=== PATIENT | female | born 1935 | race Caucasian/White ===

== ENCOUNTER 2025-05-03 12:48 | Outpatient (AMB) | payer MEDICARE, SELFPAY ==
--- NOTE | 2025-05-03 12:57 | A.SPINEOV_ITS ---
Vital Signs 05/03/25 13:03 Height 5 ft 6 in Weight 162 lb BMI 26.1 Intake Visit Reasons: LBP Intake Note: Ms. Hartmann is here today c/o Low back pain that radiates to legs causing weakness. Marine Architect Required: No Allergies No Known Allergies Allergy (Verified 05/03/25 13:03) Physical Exam Vital Signs: BMI result Body Mass Index 26.1 Assessment & Plan Assessment & Plan (1) Spinal stenosis, lumbar region with neurogenic claudication: Code(s): M48.062 - Spinal stenosis, lumbar region with neurogenic claudication Category: Medical Plan Dear JANNETH Santiago, Thank you for referring Hortencia to our office today. She is a pleasant 89 year old female who comes in today for evaluation of low back pain and bilateral leg pain primarily with ambulation. She reports that this has been going on for many years, and states that she has had previous history of 3 separate spine surgeries. She reports that she had an L4-5 fusion, a laminotomy with synovial cyst resection, and a discectomy completed by Dr. Ivey about 10 years ago. He has since retired so she wished to establish care with our office. She reports that she did have good relief of her low back pain and leg pain after a previous 3 surgeries, however always had some baseline low back pain despite surgical attempts to relieve her pain. Today, she states that for the last 2 years her low back pain and anterior thigh pain has significantly worsened. It is now to the point where she is only able to walk about 1 block before the cr amping/shooting pain into her anterior thighs prevents her from walking any farther. She needs to sit down and rest in order to continue walking. She also reports some limitations to her activities of daily living, including difficulties with basic activity such as grocery shopping, where she needs to utilize a shopping cart in order to get around the store. Given these limitations she has tried to remain quite functional, she states that she goes to the [facility] once a week for exercise class, and also goes bowling weekly. She has attempted [id number] and prescription medications in an effort to treat this via Tylenol/NSAIDs/gabapentin, however she reports these have not been particularly helpful. She has had cortisone injections with some transient relief of low back pain with our colleagues at [facility]. She has just completed a course of physical therapy. She does report some issues with bladder incontinence about 2 years ago, but states she has more recently had issues with bladder retention and states its hard for her to start a urine stream. She denies saddle anesthesia. PMH: Hypertension, arthritis, anxiety, cholecystectomy, breast cancer removal (4 years ago, in remission). Denies any Hx of cardiac / pulmonary issues aside from HTN. No Hx [place]/DVT/PE or clotting / bleeding disorders. Social hx: Patient does not smoke, reports no substance use. Medications: Gabapentin, occulite (OTC), hydrochlorothiazide, Isorbide, simvastatin, pantoprazole, escitalopram, anastrozole. Allergies: NKDA Physical exam: Pleasant elderly woman with normal body habitus. On exam the patient has about 4/5 strength in bilateral iliopsoas testing. The rest of her lower extremity strength is 5/5. She ambulates well and rises from a seated position without difficulty. She uses no assistive devices to ambulate. She has no significant sensational deficits reported on examination to light touch. (-) bilateral straight leg raise, (-) Elise's, (-) clonus. Imaging review: MRI of the lumbar spine completed here at [facility] shows evidence of prior L4-5 lumbar fusion. 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 There is moderate central canal stenosis at L3-4. Impression: Hortencia is a pleasant 82-year-old female comes in today for evaluation of low back pain and cramping pains in her bilateral thighs which occurs primarily with ambulation. Her clinical picture is most consistent with spinal stenosis with neurogenic claudication. I believe this is most likely happening as a result of the severe compression seen at L2-3. We discussed the continuum of care options for this issue, including minimally invasive lumbar decompression at L2-3 with synovial cyst removal. The patient reports that her symptoms are affecting her quality of life significantly, and she had like to proceed with surgery if possible. We extensively discussed what this surgery would entail. I answered all questions that she had. I informed her that I will need to discuss the case with my attending neurosurgeon Dr. Thacker, and will call her next week with a surgical decision. This is an outpatient day surgery, and I feel would be a good option for this patient context of her symptoms. She understands that this would likely not treat her baseline low back pain, but would primarily be intended to treat her leg cramping / neurogenic claudication. Thank you for allowing us to care for your patient. The total time spent with this visit with this patient was 45 minutes reviewing history, physical exam, MRI imaging review, and implementation of treatment plan or further diagnostic testing William Thacker MD,PhD [facility] Coding Level of Care Code New Pt Level 4 (81669) Diagnoses Spinal stenosis, lumbar region with neurogenic claudication M48.062
[2025-05-03 13:03] VITALS: BMI 26.1
--- OUTSIDE RECORDS SUMMARY | 2025-05-03 15:16 | XMS_ITS | Encounter Summary ---
Author Organization [facility] Address [address] [place] [address] [place] [phone] Phone Care Team Providers Care Fuel Cell Designer Name Role Phone Keysha Yanez ERCO MACHINE OPERATOR Primary Care Provider Encounter Details Date Type Department Care Team (Latest Contact Info) Description 10/28/2024 Transcribe Orders Virtual Department [address] [place] [address] Keysha Yanez NP 1 [facility] [address]nd [place] [address] [email or web address] Age-related osteoporosis without current pathological fracture (Primary Dx) Social History Tobacco Use Types Packs/Day Years Used Date Smoking Tobacco: Never Smokeless Tobacco: Never Alcohol Use Standard Drinks/Week Comments Yes 1 (1 standard drink = 0.6 oz pur e alcohol) Education Answer Date Recorded Are you interested in more education? Not on mai e 12/04/2022 Are you concerned about learning? Not on file 12/04/2022 No 12/04/2022 No 12/04/2022 Digital Access Answer Date Recorded No 01/05/2023 No 01/05/2023 Reliable internet access at home? Not on file 01/05/2023 Device with a working camera? Not on file Comments Unknown Sex and Gender Information Value Date Recorded Sex Assigned at Not on file Legal Sex Female 10:14 PM EDT Gender Identity Not on file Sexual Orientation Not on file documented as of this encounter Plan of Treatment Upcoming Encounters Date Type Department Care Team (Late st Contact Info) Description 06/15/2025 2:20 PM EST Office Visit [facility] [address] [place] [address] Ubaldo Peraza DO [address] [place] [address] [email or web address] documented as of this encounter Results * BD DXA AXIAL (SPINE) WITH HIP (03/20/2025 10:24 AM EDT) Anatomical Region Laterality Modality Bone Density Bone Density 03/20/2025 10:2 2 AM EDT Impressions 03/20/2025 7:00 PM EDT Interpretation: Osteopenia. Narrative 03/20/2025 7:00 PM EDT Referred By: KEYSHA YANEZ Indications: Osteoporosis Scanner: Pinshape A with serial# of [id number] located at [facility] Bone Density Scan (DXA) 03/20/25 Details of prior DXA scans are available by clicking View Full Report BMD T- Z- Skeletal Site gm/cm2 score score BMD Change Since Prior Scan ------ ----- ----- PA Spine (L1 L2) 1.157 1.60 4.30 N/A Total Hip (Left) 0.842 -0.80 1.50 N/A Femoral Neck (Left) 0.698 -1.40 1.20 N/A Total Hip (Right) 0.836 -0.90 1.50 N/A Femoral Neck (Right) 0.687 -1.50 1.10 N/A ------ ----- ----- * Denotes significant change when >= 0.022 g/cm2 for the spine, 0.027 g/cm2 for the total hip, 0.029 g/cm2 for the femoral neck. Interpretation: Osteopenia. Technical Quality: The PA Spine scan was of marginal quality because of sclerosis or fracture (which increase BMD). Because only two vertebrae are measurable, interpret PA spine results with caution; serial changes may be more variable than usual. FRAX: Based on FRAX(r) 3.6 (U[place] White female), this patient's likelihood of hip fracture is 3.4% and major osteoporotic fracture is 11.8% over the next 10 years. The patient reported no risks of fracture. Reviewed By: Dejuan Ocampo on 03/20/2025 19:00:27 Additional Information: -World Health Organization criteria classify adults based on lowest T-score at PA spine, hip or forearm: Normal (T-score >= -1.0), Osteopenia (T-score between -1 and -2.5), or Osteoporosis (T-score <= -2.5). At [facility], T-scores are compared to peak bone density of a young white gender matched reference population. - For premenopausal women and men under the age of 50, Z-scores (comparison to age, gender, and ethnicity matched reference population) are used: Above expected range for age (Z-score >= 2.0), Within expected range of age (Z-score 1.9 to -1.9), or Below expected range for age (Z-score <= -2.0). - The Bone Health and Osteoporosis Foundation recommends that treatment be considered in men aged more than 50 years and in postmenopausal women with ANY of the following: Prior hip or vertebral fractures; T-score of <= -2.5 at the PA spine or hip; or 10 year fracture probability by FRAX of >= 3% for the hip or >= 20% for major osteoporotic fracture. - The FRAX algorithm (https://www.sarkis.ac.uk/FRAX/tool.aspx) is designed to predict 10-year fracture risk in treatment-naive adults between the ages of 40 and 90. It is not intended to be used in those receiving pharmacologic osteoporosis treatment. - The TBS is derived from the texture of the DXA spine image and has been shown to be related to bone microarchitecture and fracture risk. This data provides information independent of BMD value. It adds to fracture risk assessment with a FRAX adjusted for TBS score. If your patient had a TBS and qualified for a FRAX score, the reported FRAX score has been adjusted for TBS. TBS Score Interpretation 1.350 and greater Normal bone microarchitecture 1.200 to 1.350 Partially degraded bone microarchitecture 1.200 and less Degraded bone microarchitecture - Including race/ethnicity in the generation of T- or Z-scores or in the FRAX calculation is complicated, and currently undergoing active review to ensure that we can give patients the best information on their risk of fracture. - Some prior studies may not be compatible with our comparison software. - Click on View Full Report to see subsequent pages with images and prior bone density results. Procedure Note Dejuan Ocampo MD - 03/20/2025 Referred By: KEYSHA YANEZ Indications: Osteoporosis Scanner: Pinshape A with serial# of [id number] located at [facility] Bone Density Scan (DXA) 03/20/25 Details of prior DXA scans are available by clicking View Full Report BMD T- Z- Skeletal Site gm/cm2 score score BMD Change Since Prior Scan ------ ----- PA Spine (L1 L2) 1.157 1.60 4.30 N/A Total Hip (Left) 0.842 -0.80 1.50 N/A Femoral Neck (Left) 0.698 -1.40 1.20 N/A Total Hip (Right) 0.836 -0.90 1.50 N/A Femoral Neck (Right) 0.687 -1.50 1.10 N/A ------ ----- * Denotes significant change when >= 0.022 g/cm2 for the spine, 0.027g/cm2 for the total hip, 0.029 g/cm2 for the femoral neck. Interpretation: Osteopenia. Technical Quality: The PA Spine scan was of marginal quality because of sclerosis or fracture (which increase BMD). Because only two vertebraeare measurable, interpret PA spine results with caution; serial changes may be more variable than usual. FRAX: Based on FRAX(r) 3.6 (U.S. White female), this patient's likelihoodof hip fracture is 3.4% and major osteoporotic fracture is 11.8% over thenext 10 years. The patient reported no risks of fracture. Reviewed By: Dejuan Ocampo on 03/20/2025 19:00:27 Additional Information: -World Health Organization criteria classify adults based on lowestT-score at PA spine, hip or forearm: Normal (T-score >= -1.0), Osteopenia (T-score between -1 and -2.5), or Osteoporosis (T-score <= -2.5). At [facility], T-scores are compared to peak bone density of a young white gender matched reference population. - For premenopausal women and men under the age of 50, Z-scores(comparison to age, gender, and ethnicity matched reference population) are used:Above expected range for age (Z-score >= 2.0), Within expected range of age (Z-score 1.9 to -1.9), or Below expected range for age (Z-score <= -2.0). - The Bone Health and Osteoporosis Foundation recommends that treatment be considered in men aged more than 50 years and in postmenopausal women with ANY of the following: Prior hip or vertebral fractures; T-score of <= -2.5 at the PA spine or hip; or 10 year fracture probability by FRAX of >= 3%for the hip or >= 20% for major osteoporotic fracture. - The FRAX algorithm (https://www.sarkis.ac.uk/FRAX/tool.aspx) is designed to predict 10-year fracture risk in treatment-naive adultsbetween the ages of 40 and 90. It is not intended to be used in those receiving pharmacologic osteoporosis treatment. - The TBS is derived from the texture of the DXA spine image and has been shown to be related to bone microarchitecture and fracture risk. This data provides information independent of BMD value. It adds to fracture risk assessment with a FRAX adjusted for TBS score. If your patient had a TBSand qualified for a FRAX score, the reported FRAX score has been adjusted for TBS. TBS Score Interpretation 1.350 and greater Normal bone microarchitecture 1.200 to 1.350 Partially degraded bone microarchitecture 1.200 and less Degraded bone microarchitecture - Including race/ethnicity in the generation of T- or Z-scores or in the FRAX calculation is complicated, and currently undergoing active review to ensure that we can give patients the best information on their risk of fracture. - Some prior studies may not be compatible with our comparison software. - Click on View Full Report to see subsequent pages with images andprior bone density results. IMPRESSION: Interpretation: Osteopenia. us Keysha Yanez NP IMG BD BONE DENSITY DEX A Final Result documented in this encounter Visit Diagnoses Diagnosis Age-related osteoporosis without current pathological fracture- Primary Age-related osteoporosis without current pathological fracture documented in this encounter Care Teams Fuel Cell Designer Relationship Specialty Start Date End Date Keysha Yanez NP [address] [place] [address] [email or web address] PCP - General Family Medicine 12/16/18 documented as of this encounter Additional Source Comments The information contained in this document represents components of the legal health record. It is not the complete legal health record.[facility]
--- OUTSIDE RECORDS SUMMARY | 2025-05-03 15:16 | XMS_ITS | Encounter Summary ---
Author Organization [facility] Address [address] [place] [phone] Phone Care Team Providers Care Weed Eradicator Name Role Phone Anna Yanez CONTINUOUS MINING MACHINE COAL MINER Primary Care Provider Encounter Details Date Type Department Care Team (Late st Contact Info) Description 12/07/2020 Ancillary Orders [facility],Outside Imaging [address] [place] [address] System, Provider Not In, [place] [address] Social History Tobacco Use Types Packs/Day Years Used Date Smoking Tobacco: Never Smokeless Tobacco: Never Alcohol Use Standard Drinks/Week Comments Yes 1 (1 standard drink = 0.6 oz pur e alcohol) Comments Unknown Sex and Gender Information Value Date Recorded Sex Assigned at Not on file Legal Sex Female 10:14 PM EDT Gender Identity Not on file Sexual Orientation Not on file documented as of this encounter Plan of Treatment Upcoming Encounters Date Type Department Care Team (Late st Contact Info) Description 06/15/2025 2:20 PM EST Office Visit [facility] [address] [place] [address] Ubaldo Peraza, DO [address] [place] [address] documented as of this encounter Results * MRI Breast Outside (No Interpretation) (11/19/2020 12:00 AM EDT) Narrative SYSTEMGENERATED, DOCUMENTATION - 12/07/2020 4:57 PM EDT This study is for PACS storage only and not for interpretation. us Provider Not In System PhD IMG OUTSIDE IMAGING W /OUT INTERPRETATION Final Result documented in this encounter Visit Diagnoses Not on filedocumented in this encounter Care Teams Weed Eradicator Relationship Specialty Start Date End Date Anna Yanez NP 1 [facility] [address]nd [place] [address] [email or web address] PCP - General Family Medicine 12/16/18 documented as of this encounter Additional Source Comments The information contained in this document represents components of the legal health record. It is not the complete legal health record.[facility]
--- OUTSIDE RECORDS SUMMARY | 2025-05-03 15:16 | XMS_ITS | Encounter Summary ---
Author Organization [facility] Address [address] [place], [place] [phone] Phone Care Team Providers Care Casing In Line Feeder Name Role Phone Anna Yanez NP Primary Care Provider Reason for Referral * MRI/CAT Scan - Closed Specialty Diagnoses / Procedures Referred By Lucie cano Referred To Contact Radiology Diagnoses Chest pain, unspecified type Procedures NC Myocardial Perfusion Exercise Multiple Anna Yanez NP [address] [place] [address] Phone: tel: fax: [email or web address] Referral ID Status Reason Start Date Expiration Date Visits Re quested Visits Authorized [id number] Closed 02/09/2024 02/08/2025 4 4 Encounter Details Date Type Department Care Team (Latest Contact Info) Description 02/09/2024 Transcribe Orders Virtual Department [address] [place] [address] Anna Yanez NP [address] [place] [address] [email or web address] Chest pain, unspecified type (Primary Dx) Social History Tobacco Use Types [...] 2:20 PM EST Office Visit [facility] [address] [place] [address] [place] [address] Ubaldo Peraza DO [address] [place] [phone] [email or web address] documented as of this encounter Results * NC Myocardial Perfusion Exercise Multiple (03/07/2024 1:09 PM EDT) Anatomical Region Laterality Modality Heart, Vascular Nuclear Medicine 03/07/2024 1:34 PM EDT Impressions 03/07/2024 3:30 PM EDT * Left ventricular ejection fraction: 73% * Myocardial perfusion images show no evidence of scar or ischemia. Narrative 03/07/2024 3:30 PM EDT EXAM: NC MYOCARDIAL PERFUSION EXERCISE, MULTI CLINICAL INDICATION: Outside Radiology Order. TECHNIQUE: According to standard departmental protocol, the patient was injected with 10.5 mCi of TC-99M Sestamibi IV at rest and ungated SPECT myocardial images were obtained. Subsequently, a stress test was performed and 30.5 mCi of TC-99M Sestamibi was injected at peak stress. After 30 to 60 minutes, gated SPECT images were obtained and assessed for myocardial perfusion and left ventricular function. Stress EKG findings were interpreted by cardiology and are reported separately. Please refer to that report in Epic. COMPARISON: None. FINDINGS: PERFUSION: Myocardial perfusion images show no evidence of scar or ischemia. VENTRICULAR SIZE AND FUNCTION: Left ventricular ejection fraction within normal limits. Left ventricular size within normal limits. LV EF: 73% TID Ratio: 1.18 IMAGE QUALITY: Good Procedure Note Whit Ortiz MD, MSc - 03/07/2024 EXAM: NC MYOCARDIAL PERFUSION EXERCISE, MULTI CLINICAL INDICATION: Outside Radiology Order. TECHNIQUE: According to standard departmental protocol, the patient wasinjected with 10.5 mCi of TC-99M Sestamibi IV at rest and ungated SPECTmyocardial images were obtained. Subsequently, a stress test was performedand 30.5 mCi of TC-99M Sestamibi was injected at peak stress. After 30 to60 minutes, gated SPECT images were obtained and assessed for myocardialperfusion and left ventricular function. Stress EKG findings were interpreted by cardiology and are reportedseparately. Please refer to that report in Epic. COMPARISON: None. FINDINGS: PERFUSION: Myocardial perfusion images show no evidence of scar orischemia. VENTRICULAR SIZE AND FUNCTION: Left ventricular ejection fraction withinnormal limits. Left ventricular size within normal limits. LV EF: 73% TID Ratio: 1.18 IMAGE QUALITY: Good IMPRESSION: * Left ventricular ejection fraction: 73% * Myocardial perfusion images show no evidence of scar or ischemia. Anna Yanez PERFORMANCE SPECIALIST CV NM CARDIAC Final R esult documented in this encounter Visit Diagnoses Diagnosis Chest pain, unspecified type- Primary Chest pain, unspecified type documented in this encounter Care Teams Casing In Line Feeder Relationship Specialty Start Date End Date Anna Yanez NP [address] [place] [phone] [email or web address] PCP - General Family Medicine 12/16/18 documented as of this encounter Additional Source Comments The information contained in this document represents components of the legal health record. It is not the complete legal health record.[facility]
--- OUTSIDE RECORDS SUMMARY | 2025-05-03 15:16 | XMS_ITS | Encounter Summary ---
Author Organization [facility] Address [address] [place] [phone] Phone Care Team Providers Care Gypsum Roofer Name Role Phone Anna Yanez AIR DRIER MACHINE OPERATOR Primary Care Provider Encounter Details Date Type Department Care Team (Late st Contact Info) Description 12/07/2020 Ancillary Orders [facility],Outside Imaging [address] [place] [address] System, Provider Not In, PhD Partners [address] [address] Social History Tobacco Use Types Packs/Day Years [...] PM EST Office Visit [facility] [address] [place] [address] Ubaldo Peraza, DO [address] [place] [address] documented as of this encounter Results * US Breast Outside (No Interpretation) (09/25/2020 12:00 AM EST) Narrative SYSTEMGENERATED, DOCUMENTATION - 12/07/2020 11:17 AM EDT This study is for PACS storage only and not for interpretation. us Provider Not In System PhD IMG OUTSIDE IMAGING W /OUT INTERPRETATION Final Result * US Breast Outside (No Interpretation) (09/20/2020 12:00 AM EST) Narrative SYSTEMGENERATED, DOCUMENTATION - 12/07/2020 11:16 AM EDT This study is for PACS storage only and not for interpretation. us Provider Not In System PhD IMG OUTSIDE IMAGING W /OUT INTERPRETATION Final Result * Mammogram Outside (No Interpretation) (09/17/2020 12:00 AM EST) Narrative SYSTEMGENERATED, DOCUMENTATION - 12/07/2020 11:17 AM EDT This study is for PACS storage only and not for interpretation. us Provider Not In System PhD IMG OUTSIDE IMAGING W /OUT INTERPRETATION Final Result documented in this encounter Visit Diagnoses Not on filedocumented in this encounter Care Teams Gypsum Roofer Relationship Specialty Start Date End Date Anna Yanez NP [address] [address] [email or web address] PCP - General Family Medicine 12/16/18 documented as of this encounter Additional Source Comments The information contained in this document represents components of the legal health record. It is not the complete legal health record.[facility]
--- OUTSIDE RECORDS SUMMARY | 2025-05-03 15:16 | XMS_ITS | Encounter Summary ---
Author Organization [facility] Address [address] [place] [address] [place], [place] [id number] Phone Care Team Providers Care Table Games Manager Name Role Phone Anna Yanez CRIB ATTENDANT Primary Care Provider Encounter Details Date Type Department Care Team (Late Contact Info) Description 03/02/2020 Transcribe Orders [facility] [address] [place] [address] Anna Yanez NP [address] [place] [phone] [email or web address] Social History Tobacco Use Types Packs/Day Years [...] Encounters Date Type Department Care Team (Late Contact Info) Description 06/15/2025 2:20 PM EST Office Visit [facility] [address] [place] [address] Ubaldo Peraza DO [address] [place] [address] documented as of this encounter Visit Diagnoses Not on filedocumented in this encounter Care Teams Table Games Manager Relationship Specialty Start Date End Date Anna Yanez NP [address] [place] [phone] [email or web address] PCP - General Family Medicine 12/16/18 documented as of this encounter Additional Source Comments The information contained in this document represents components of the legal health record. It is not the complete legal health record.[facility]
--- OUTSIDE RECORDS SUMMARY | 2025-05-03 15:16 | XMS_ITS | Encounter Summary ---
Author Organization [facility] Address [address] [place] [address] [place] [address] Phone Care Team Providers Care Topographic Computator Name Role Phone Anna Yanez GEAR STRAIGHTENER Primary Care Provider Reason for Referral * MRI/CAT Scan - Closed Specialty Diagnoses / Procedures Referred By Lucie cano Referred To Contact Radiology Diagnoses Chest pain, unspecified type Procedures NC Stress Result for Nuclear Stress Test Anna Yanez NP [address] [address] Phone: tel: fax: [email or web address] Referral ID Status Reason Start Date Expiration Date Visits Re quested Visits Authorized [id number] Closed 03/07/2024 03/07/2025 1 1 Encounter Details Date Type Department Care Team (Late st Contact Info) Description 03/07/2024 Ancillary Orders Virtual Department [address] [place] [address] Anna Yanez NP [address] [address] [email or web address] Chest pain, unspecified type (Primary Dx) Social [...] 2:20 PM EST Office Visit [facility] [address] [place] [phone] Ubaldo Peraza DO [address] [place] [phone] documented as of this encounter Results * NC Stress Result for Nuclear Stress Test (03/07/2024 2:30 PM EDT) Max Predicted Heart Rate 133 bpm [facility] Max BP Systolic 184 mmHg [facility] Max BP Diastolic 89 mmHg [facility] Max HR 139 BPM [facility] Resting HR 61 BPM [facility] Resting BP Systolic 182 mmHg [facility] Resting BP Diastolic 80 mmHg [facility] Peak METS 1.6 METS [facility] Peak HR 71 BPM [facility] Anatomical Region Laterality Modality Heart Other 03/07/2024 11:2 0 AM EDT 03/07/2024 11:51 AM EDT Narrative 03/07/2024 2:53 PM EDT Stress Findings The resting heart rate was 61 BPM. The resting BP was 182/80 mmHg. A peak heart rate of 71 BPM was achieved. ECG REPORT- Test was performed as a walking Regadenoson test due to back pain. 0.4 mg Regadenoson (lexiscan) given IV push over 10 seconds as per protocol immediately followed by injection of Tc99m Sestamibi by Dianne chief nuclear medicine technologist. 1. EKG - Baseline EKG showed sinus rhythm with non specific ST-T wave abnomalities. There were frequent PACs throughout the study. After the injection of Lexiscan there were no ischemic EKG changes. 2. SYMPTOMS - No chest pain. She reported feeling weak and lightheaded after the injection of Lexiscan which was reversed with 75mg Aminophylline. 3. PHYSIOLOGY - Resting HR was 61 bpm. After Lexiscan injection, HR 139 bpm. 4. ARRHYTHMIAS -occasional isolated PACs,rare islated PVCs. There are some EKG readings that are questionable for possible atrial fibrillation. Conclusion - There were no EKG changes suggestive for ischemia. There were no reported symptoms concerning for angina. Nuclear images pending and will be reported separately. Recommend obtaining a Holter monitor to assess for atrial fibrillation. Atrial fibrillation wouldbe new per patient. Lima Astorga NP with Dr. Smith Response to Stress The patient exercised for minutes and seconds, achieving 1.6 METS at peak exercise. Baseline blood pressure was 182/80 mmHg, and baseline heart rate was 61 bpm. The patient achieved a peak heart rate of 71 bpm, which is% of their maximum predicted heart rate. Anna Yanez GEAR STRAIGHTENER CV NM CARDIAC Final R esult documented in this encounter Visit Diagnoses Diagnosis Chest pain, unspecified type- Primary Chest pain, unspecified type documented in this encounter Care Teams Topographic Computator Relationship Specialty Start Date End Date Anna Yanez NP [address] [place] [phone] [email or web address] PCP - General Family Medicine 12/16/18 documented as of this encounter Additional Source Comments The information contained in this document represents components of the legal health record. It is not the complete legal health record.[facility]
--- OUTSIDE RECORDS SUMMARY | 2025-05-03 15:16 | XMS_ITS | Encounter Summary ---
Author Organization [facility] Address [address] [place] [phone] Phone Care Team Providers Care Marine Chronometer Assembler Name Role Phone Anna Yanez PRODUCTION STAGE MANAGER Primary Care Provider Encounter Details Date Type Department Care Team (Late st Contact Info) Description 12/07/2020 Ancillary Orders [facility],Outside Imaging [address] [place] [address] System, Provider Not In, [facility] [address] [address] Social History Tobacco Use Types Packs/Day Years [...] PM EST Office Visit [facility] [address] [place] [address] Ubaldo Peraza, DO [address] [place] [address] documented as of this encounter Results * Mammogram Outside (No Interpretation) (09/25/2020 12:05 AM EST) Narrative SYSTEMGENERATED, DOCUMENTATION - 12/07/2020 12:52 PM EDT This study is for PACS storage only and not for interpretation. us Provider Not In System PhD IMG OUTSIDE IMAGING W /OUT INTERPRETATION Final Result documented in this encounter Visit Diagnoses Not on filedocumented in this encounter Care Teams Marine Chronometer Assembler Relationship Specialty Start Date End Date Anna Yanez NP 1 [facility] [address] [place] [address] [email or web address] PCP - General Family Medicine 12/16/18 documented as of this encounter Additional Source Comments The information contained in this document represents components of the legal health record. It is not the complete legal health record.[facility]
--- OUTSIDE RECORDS SUMMARY | 2025-05-03 15:16 | XMS_ITS | Encounter Summary ---
Author Organization [facility] Address [address] [place] [phone] Phone Care Team Providers Care Lusterer Name Role Phone Anna Yanez GRAY TENDER Primary Care Provider Encounter Details Date Type Department Care Team (Late st Contact Info) Description 12/07/2020 Ancillary Orders [facility],Outside Imaging [address] [place] [address] System, Provider Not In, [facility] [address] [address] Social History Tobacco Use Types Packs/Day Years [...] PM EST Office Visit [facility] [address] [place] [address] Ubaldo Peraza, [address] [place] [address] documented as of this encounter Results * Mammogram Outside (No Interpretation) (11/27/2020 12:10 AM EDT) Narrative SYSTEMGENERATED, DOCUMENTATION - 12/07/2020 1:04 PM EDT This study is for PACS storage only and not for interpretation. us Provider Not In System PhD IMG OUTSIDE IMAGING W /OUT INTERPRETATION Final Result * Mammogram Outside (No Interpretation) (11/27/2020 12:05 AM EDT) Narrative SYSTEMGENERATED, DOCUMENTATION - 12/07/2020 1:04 PM EDT This study is for PACS storage only and not for interpretation. us Provider Not In System PhD IMG OUTSIDE IMAGING W /OUT INTERPRETATION Final Result * Mammogram Outside (No Interpretation) (11/27/2020 12:00 AM EDT) Narrative SYSTEMGENERATED, DOCUMENTATION - 12/07/2020 1:03 PM EDT This study is for PACS storage only and not for interpretation. us Provider Not In System PhD IMG OUTSIDE IMAGING W /OUT INTERPRETATION Final Result documented in this encounter Visit Diagnoses Not on filedocumented in this encounter Care Teams Lusterer Relationship Specialty Start Date End Date Anna Yanez NP [address] [address] [email or web address] PCP - General Family Medicine 12/16/18 documented as of this encounter Additional Source Comments The information contained in this document represents components of the legal health record. It is not the complete legal health record.[facility]
--- OUTSIDE RECORDS SUMMARY | 2025-05-03 15:17 | XMS_ITS | Encounter Summary ---
Author Organization [facility] Address [address] [place] [phone] Phone Care Team Providers Care Printing Bindery Assistant Name Role Phone Anna Yanez [employer] Primary Care Provider Encounter Details Date Type Department Care Team (Late Contact Info) Description 03/17/2024 Procedure Pass Non-Invasive Cardiology [address] [place] [address] Social History Tobacco Use Types Packs/Day Years [...] PM EST Office Visit [facility] [address] [place] [address] [place] [address] documented as of this encounter Visit Diagnoses Not on filedocumented in this encounter Care Teams Printing Bindery Assistant Relationship Specialty Start Date End Date Anna Yanez NP [address] [address] [email or web address] PCP - General Family Medicine 12/16/18 documented as of this encounter Additional Source Comments The information contained in this document represents components of the legal health record. It is not the complete legal health record.[facility]
--- OUTSIDE RECORDS SUMMARY | 2025-05-03 15:17 | XMS_ITS | Clinical Summary ---
Author Organization [facility] Address [address] [place], [place] [id number] Phone Care Team Providers Care [employer] Libr[employer] Name Role Phone Keysha Yanez NP Primary Care Provider Allergies No known active allergies Medications atenolol (TENORMIN) 25 MG tablet Take 25 mg by mouth daily. Active hydroCHLOROthia zide (HYDRODIURIL) 25 MG tablet Take 25 mg by mouth daily. Active simvastatin (ZOCOR) 20 MG tablet Take 20 mg by mouth daily. Active pantoprazole (PROTONIX) 40 MG tablet Take 40 mg by mouth 2 (two) times a day. Active escitalopram oxalate (LEXAPRO) 10 MG tablet Take 20 mg by mouth daily. Active isosorbide mononitrate (IMDUR) 120 MG 24 hr tablet Take 120 mg by mouth daily. Active anastrozole (ARIMIDEX) 1 mg tablet Take 1 mg by mouth daily. 03/23/20 22 Active mirtazapine (REMERON) 15 MG tablet mirtazapine 15 mg tablet TAKE 1 TABLET BY MOUTH EVERY DAY Active cholestyramine (QUESTRAN) 4 gram packet cholestyramine (with sugar) 4 gram powder for susp in a packet TAKE 1 PACKET BY MOUTH DAILY FOR 2 WEEKS, THEN MAY INCREASE TO 1 PACKET TWICE A DAY Active alendronate (FOSAMAX) 70 MG tabletIndicatio ns:Osteopenia of multiple sites Take 1 tablet (70 mg total) by mouth every 7 days. Take in the morning with a full glass of water, on an empty stomach, and do not take anything else by mouth or lie down for the next 30 min. 12 tablet 3 03/26/20 23 Active Additional Information Patient not taking.Reported on 02/27/2025 vits A,C,E/lutein/mi nerals (OCUVITE WITH LUTEIN ORAL) Take by mouth. 05/18/20 Active Active Problems Problem Noted Date Diagnosed Date Hypercalcemia 02/27/2025 Assessment & Plan (02/27/2025 1:26 PM EDT): The patient has elevated serum calcium levels and she has not had this in the past. She stopped taking vitamin D supplements but she should still be getting her 1000 units through her calcium supplements. She is getting 1200 mg of calcium and I wrote previously that I suspect she is only getting 500 mg elemental. PTH in the past had been elevated but did normalize after vitamin D levels were replete. So I did not work it up further. Now that she has elevated serum calcium I would like to repeat PTH vitamin D and 1, 25 dihydroxy vitamin D as well as a 24-hour urine calcium study. Achilles tendinitis of left lower extremity 04/12 Malignant neoplasm of overla pping sites of right breast in female, estrogen receptor negative 12/19/2020 Malignant neoplasm of overla pping sites of left breast in female, estrogen receptor positive 12/19/2020 Hyperparathyroidism, secondary 03/02/2019 Assessment & Plan (04/28/2022 1:52 PM EDT): Intact PTH is now in the reference range at 60 PG/mL. Vitamin D level is in the reference range at 57 ng/mL. I would not work this up further. Assessment & Plan (02/28/2021 2:19 PM EDT): I believe the patient has secondary hyperparathyroidism due to vitamin D deficiency can take up to a year for intact PTH levels to normalize. I did not repeat levels for this year and I have requested to be done anytime prior to the follow-up visit. Assessment & Plan (03/01/2020 2:02 PM EDT): This is a patient with secondary hyperparathyroidism which I think is due to decreased calcium intake since 24-hour urine output was low she is now taking calcium supplements once a day with food. And she believes that she is taking adequate calcium intake in fact last year she had told me she was getting over 1200mg daily so I could not explain why her calcium output was low. She was advised to take calcium tablets twice a day with food but she is taking 1 tablet daily with food. Assessment & Plan (03/02/2019 2:10 PM EDT): This may be due to decreased calcium intake or possibly renal insufficiency because she has a low glomerular filtration rate. It does not appear to be due to vitamin D deficiency because vitamin D levels are in the reference range. Hopefully this will improve with calcium intake. If it does not then I would have to assume that this is secondary to renal etiology. Osteopenia of multiple sites 01/26/2019 Assessment & Plan (02/27/2025 1:28 PM EDT): This is a patient with history of osteoporosis who is in the osteopenic range and was treated with alendronate 70 mg weekly for period of 5 years. She is now on drug holiday for 1 year. CTX has increased. She is due to repeat DXA scan on 03/20/2025. She continues taking calcium which contains vitamin D but stopped additional 1000 units of vitamin D supplements. She states that she had back problems so had not done a lot of weightbearing exercises [facility] & Plan (02/25/2024 1:44 PM EDT): The patient continues with calcium, vitamin D, weightbearing exercises as tolerated. She has been using alendronate now for 5 years. She is due for repeat DXA scan at [facility] on 01/13/2025. Since she reached the 5-year meseret the question is whether she should continue alendronate or take a drug holiday I will resume therapy with another antiresorptive medication. She is not eligible for anabolic hormones such as Forteo or Tymlos. It is possible that she can continue on alendronate for another year and we can reevaluate after she has had her DXA scan. However continuing the bisphosphonate after the 5-year meseret increases her risk of atypical femur fracture. She did receive an additional 12 tablets from the pharmacy so I told her to just continue this for another 3 months. The patient has decided to take a drug holiday. She should repeat DXA scan on 01/13/2025 at [facility] [place]. Assessment & Plan (03/26/2023 2:22 PM EDT): The patient continues to do well with the use of alendronate. Bone mineral density improved in the hip and forearm. She is now using alendronate for 4 years. We can continue for another year and then reevaluate in the fifth year maybe she can have a drug holiday or possibly switch to a different medication. I will renew the medication and she will follow-up in 11 months. I asked her to do lab work today and she should repeat lab work prior to the follow-up visit in 11 months. Assessment & Plan (04/28/2022 1:55 PM EDT): N-telopeptide in the reference range she is not due for repeat DXA scan until 12/25/2022. She should continue calcium, vitamin D and alendronate 70 mg weekly. Assessment & Plan (02/28/2021 2:18 PM EDT): The patient has had nonsignificant decrease in the left forearm and left total hip bone mineral density but the left femoral neck T score increased by 3.9%. She should continue Fosamax 70 mg weekly and calcium and vitamin D supplementation as she is currently doing. She will follow in 1 years time. Assessment & Plan (03/01/2020 2:03 PM EDT): She does have osteopenia with high FRAX score and is on Fosamax 70 mg weekly and is tolerating it without any adverse effects I requested a basic panel today just to make sure that her glomerular filtration rate is good. She is due for repeat bone density on December 14, 2020 and she should get the study done at [facility] where she had a done last time this should be ordered by her primary care physician so that it can be done at that facility. She should continue calcium and vitamin D. She really should take pictures of the supplements she is using or at least bring in the supplements with her so that we can check what she is actually using. She will return for follow-up in 1 year. Assessment & Plan (03/02/2019 2:09 PM EDT): This is a patient with osteopenia has multiple risk factors and I suspect that 1 of them is decreased calcium intake and I asked her to just double up the calcium supplements she is taking but she has to take it twice a day with food at separate meals. Because she does not have osteoporosis she has osteopenia but a high FRAX score we do recommend therapy. I suggested Fosamax weekly. I explained to her that this must be taken fasting with water and she must wait one half an hour before eating and also she should remain either in the sitting or standing position. The question is if she got to tolerate the medication because she has GERD and Beal's esophagus. My suggestion is to try it and if she does not tolerate the medication she does qualify for re-class IV once a year or she can use denosumab every 6 months but she will have to come into the office for that. I will go ahead and prescribe Fosamax and the patient will call me if she has any adverse effects in the meantime I will schedule her for follow-up in a year. She is not due for bone mineral density study until 12/14/20. He should continue taking vitamin D supplementation as she is currently doing. Assessment & Plan (01/26/2019 2:00 PM EDT): The patient has multiple reasons for osteopenia at this includes family history, menopause, age, use of proton pump inhibitors and SSRIs. I do have to check for secondary causes of osteopenia such as vitamin D deficiency, decreased calcium intake, hyperparathyroidism, hyperthyroidism etc. and I have requested lab work for further evaluation. At this point we are not going to treat the patient although she does qualify for therapy based on her FRAX score. I calculated a FRAX score of 13% for the hip and 27% for major osteoporotic fracture this is when I take into account that she had a fracture 25 years ago. Since the patient is uncertain if she really had a fracture I removed this and hip fracture decreased to 10% and major osteoporotic fracture decreased to 20%. So a risk of 3% or more for hip fracture requires therapy. Now, I have not included secondary causes of osteoporosis because I still need to check for these so this could also change the FRAX score. Regardless she does need therapy. At this point I rather hold off going into what medications we can use on until we have done the secondary work-up. She can return for follow- up in 4 weeks time and we can discuss it then. Encounters Date Type Department Care Team Description 03/20/2025 10:09 AM EDT - 03/20/2025 11:59 PM EDT Hospital Encounter [facility] D[facility] [address] [place] [address] Keysha Yanez NP Discharge Disposition: Home or Self Care 03/09/2025 9:59 AM EDT - 03/09/2025 11:59 PM EDT Hospital Encounter [facility] [address] [place] [address] Ubaldo Peraza, DO Discharge Disposition: Home or Self Care 03/08/2025 12:11 PM EDT - 03/08/2025 11:59 PM EDT Hospital Encounter [facility] [address] [place] [address] Ubaldo Preaza, Discharge Disposition: Home or Self Care 02/27/2025 1:20 PM EDT Office Visit [facility] [address] [place] [address] Ubaldo Peraza DO Osteopenia of multiple sites (Primary Dx); Hypercalcemia 02/21/2025 2:42 PM EDT - 02/21/2025 11:59 PM EDT Hospital Encounter [facility] [address] [place] [address] Ubaldo Peraza, DO Discharge Disposition: Home or Self Care from Last 3 Months Family History Medical History Relation Comments Coronary artery disease Father Alzheimer's disease Mother Relation Status Comments Father Mother Social History Tobacco Use Types Packs/Day Years [...] on file Sexual Orientation Not on file Last Filed Vital Signs Vital Sign Reading Time Taken Comments Blood Pressure 110/78 02/27/2025 1:13 PM EDT Pulse 69 02/27/2025 1:13 PM EDT Temperature 36.2 C (97.1 F) 03/26/2023 1:41 PM EDT Respiratory Rate 16 02/04/2021 2:23 PM EDT Oxygen Saturation 97% 02/25/2024 1:17 PM EDT Inhaled Oxygen Concentration - - Weight 73.5 kg (162 lb) 02/27/2025 1:13 PM EDT Height 170.2 cm (5' 7 ) 02/27/2025 1:13 PM EDT Body Mass Index 25.37 02/27/2025 1:13 PM EDT Plan of Treatment Upcoming Encounters Date Type Department Care Team (Late st Contact Info) Description 06/15/2025 2:20 PM EST Office Visit [facility] [address] [place] [phone] Ubaldo Peraza DO [address] [place] [phone] [email or web address] Health Maintenance Due Date Last Done Comments DEPRESSION SCREENING 1947 RSV VACCINE (1 - 1-dose 75+ series) 01/30/2012 INFLUENZA VACCINE (#1) 2025 , 05/13/2020, 05/18/2019, Additional history exists COVID-19 VACCINE ( - season) 2025 POTASSIUM LEVEL 03/09/2026 03/09/2025, 02/07, 02/25/2024, Additional history exists Adult Td,Tdap Booster 10/21/2028 10/21/2018, 009 PNEUMOCOCCAL VACCINES (50+ years) Completed 09/06/2015, 09/07/2014 ZOSTER VACCINES Completed 02/13/2022, 12/10/2021 OSTEOPOROSIS SCREENING INITIAL (ONE-TIME) Completed 03/20/2025, 02/25/2024, 04/28/2022 HEPATITIS A VACCINES Aged Out No long er eligible based on patient's age to complete this topic HIB VACCINES Aged Out No longer eligi ble based on patient's age to complete this topic MENINGOCOCCAL VACCINES (ACWY) Aged Out No longer eligible based on patient's age to complete this topic MENINGOCOCCAL VACCINES (B) Aged Out N o longer eligible based on patient's age to complete this topic Medical Devices Not on file Procedures Procedure Name Priority Date/Time Associated Diagnosis Comments BD DXA AXIAL (SPINE) WITH HIP Routine 03/20/2025 10:24 AM EDT Age-related osteoporosis without current pathological fracture 25-OH VITAMIN D Routine 03/09/2025 9:59 AM EDT Hypercalcemia RENAL PANEL Routine 03/09/2025 9:59 AM EDT Hypercalcemia 1-25-OH VITAMIN D Routine 03/09/2025 9:5 9 AM EDT Hypercalcemia P1NP (Procollagen I NT Polypeptide) Routine 03/09/2025 9:59 AM EDT Osteopenia of multiple sites PARATHYROID HORMONE (PTH) Routine 03/09/2025 9:59 AM EDT Hypercalcemia COLLAGEN TYPE 1B-TELOPEPTIDE, BLOOD Routine 03/09/2025 9:59 AM EDT Osteopenia of multiple sites TIMED URINE DATA Routine 03/08/2025 9:00 AM EDT CREATININE, 24 HR URINE Routine 03/08/2025 9:00 AM EDT Hypercalcemia CALCIUM, 24 HOUR URINE Routine 03/08/2025 9:00 AM EDT Hypercalcemia COLLAGEN TYPE 1B-TELOPEPTIDE, BLOOD Routine 02/21/2025 2:42 PM EDT Osteopenia of multiple sites COMPREHENSIVE METABOLIC PANEL Routine 02/21/2025 2:42 PM EDT Osteopenia of multiple sites from Last 3 Months Results * BD DXA AXIAL (SPINE) WITH HIP (03/20/2025 10:24 AM EDT) Anatomical Region Laterality Modality Bone Density Bone Density 03/20/2025 10:2 2 AM EDT Impressions 03/20/2025 7:00 PM EDT Interpretation: Osteopenia. Narrative 03/20/2025 7:00 PM EDT Referred By: KEYSHA YANEZ Indications: Osteoporosis Scanner: [employer] A with serial# of [id number] located at [facility] Bone Density Scan (DXA) 03/20/25 Details of [...] -2.5), or Osteoporosis (T-score <= -2.5). At [facility], T-scores are compared to peak bone density [...] Referred By: KEYSHA YANEZ Indications: Osteoporosis Scanner: [employer] with serial# of [id number] located at [facility] Bone Density Scan (DXA) 03/20/25 Details of [...] -2.5), or Osteoporosis (T-score <= -2.5). At [facility], T-scores are compared to peak bone density [...] andprior bone density results. IMPRESSION: Interpretation: Osteopenia. Keysha Yanez FIELD CANE SCALER IMG BD BONE DENSITY DEX A Final Result * P1NP (PROCOLLAGEN I NT POLYPEPTIDE) (03/09/2025 9:59 AM EDT) Pathologist [facility] PROCOLL I INTACT N 44 mcg/L [facility] Comment: (NOTE) REFERENCE VALUE Premenopausal: 19-83 Postmenopausal: 16-96 Blood 03/09/2025 9:59 AM EDT 03/09/2025 10:05 AM EDT Ubaldo Peraza DO LAB BLOOD ORDERABLES Final Resul t [facility]PATH [facility] [address] [place] [address] * (ABNORMAL) Renal panel (03/09/2025 9:59 AM EDT) Pathologist [facility] SODIUM 138 133 - 146 mmol/L [facility] POTASSIUM 3.4 3.3 - 5.1 mmol/L [facility] CHLORIDE 99 96 - 108 mmol/L [facility] CO2 29 21 - 35 mmol/L [facility] GLUCOSE 102(H) 70 - 99 mg/dL [facility] BUN 13 6 - 19 mg/dL [facility] CREATININE 1.00 0.5 - 1.5 mg/dL [facility] CALCIUM 9.7 8.4 - 10.3 mg/dL [facility] PHOSPHORUS 3.1 2.7 - 4.5 mg/dL [facility] ALBUMIN 4.2 3.9 - 4.8 g/dL [facility] EGFR 54(L) >59 mL/min/1.7 3m2 [facility] Comment:Estimated glomerular filtration rate calculated using the CKD-EPI refit equation. ANION GAP 13 10 - 20 mmol/L [facility] Blood 03/09/2025 9:59 AM EDT 03/09/2025 10:05 AM EDT us Ubaldo Peraza DO LAB BLOOD ORDERABLES Final Resul t [facility] [address] [place] [address] * Collagen type 1b-telopeptide, blood (03/09/2025 9:59 AM EDT) Only the most recent of2 resultswithin the time period is included. Pathologist [facility] Collagen CTx 438 pg/mL [facility] PT LAB MED/PATH SUPERIOR Comment: (NOTE) REFERENCE VALUE [phone] (18-29 y) 150-635 (30-39 y) 131-670 (40-49 y) [phone] (50-59 y) 171-970 (60-69 y) 152-858 (>70 y) 136-689 (Premenopausal) [phone] (Postmenopausal) Flagging is based on the age-specific reference interval and not menopausal status. Blood 03/09/2025 9:59 AM EDT 03/09/2025 10:05 AM EDT Ubaldo Peraza LAB BLOOD ORDERABLES Final Resul t Performing Organization Address [facility] de Phone Number [facility] LAB MED/PATH [address] [place] [address] * 1-25-OH vitamin D (03/09/2025 9:59 AM EDT) 1,25 (OH) 2 Vitamin D3 38 18 - 78 pg/mL [facility] LAB MED/PATH SUPERIOR Comment: (NOTE) ADDITIONAL INFORMATION This test was developed and its performance characteristics determined by [facility] in a manner consistent with CLIA requirements. This test has not been cleared or approved by the U.S. Food and Drug Administration. Blood 03/09/2025 9:59 AM EDT 03/09/2025 10:05 AM EDT Ubaldo Peraza [facility] BLOOD ORDERABLES Final Resul t Performing Organization Address [facility] de Phone Number [facility] LAB MED/PATH [place] [address] * 25-OH vitamin D (03/09/2025 9:59 AM EDT) 25 [place] VIT D (TOTAL) 52 30 - 60 ng/mL [facility] Blood 03/09/2025 9:59 AM EDT 03/09/2025 10:05 AM EDT Ubaldo Peraza [facility] BLOOD ORDERABLES Final Resul t Performing Organization Address [facility] Co de Phone Number [facility] [address] [place] [address] * (ABNORMAL) Parathyroid hormone (PTH) (03/09/2025 9:59 AM EDT) PARATHYROID HORMONE 106(H) 15 - 65 pg/mL [facility] Blood 03/09/2025 9:59 AM EDT 03/09/2025 10:05 AM EDT Ubaldo Peraza DO LAB BLOOD ORDERABLES Final Resul t [address] [address] * Timed urine data (03/08/2025 9:00 AM EDT) COLLECTION DATA 24HR [facility] TOTAL VOLUME 2,250 mL [facility] 03/08/2025 9:00 AM EDT 03/09/2025 10:06 AM EDT Ubaldo Peraza DO URINE ORDERABLES Final Result Performing Organization Address City/[facility]/ZIP Co de Phone Number [address] [address] * (ABNORMAL) Calcium, 24 hour urine (03/08/2025 9:00 AM EDT) URINE CALCIUM 3.5 mg/dL [facility] CALCIUM OUTPUT 79(L) 100 - 300 mg/total output [facility] Urine (Urine) 03/08/2025 9:0 0 AM EDT 03/09/2025 10:06 AM EDT Ubaldo Peraza DO URINE ORDERABLES Final Result [address] [address] * Creatinine, 24 hr urine (03/08/2025 9:00 AM EDT) URINE CREATININE 45 mg/dL [facility] CREATININE OUTPUT 1,013 600 - 1,800 mg/total output [facility] Urine (Urine) 03/08/2025 9:0 0 AM EDT 03/09/2025 10:06 AM EDT us Ubaldo Peraza DO URINE ORDERABLES Final Result Performing Organization Address City/[facility]/ZIP Co de Phone Number [address] [address] * (ABNORMAL) Comprehensive metabolic panel (02/21/2025 2:42 PM EDT) SODIUM 136 133 - 146 mmol/L [facility] POTASSIUM 3.8 3.3 - 5.1 mmol/L [facility] CHLORIDE 95(L) 96 - 108 mmol/L [facility] CO2 30 21 - 35 mmol/L [facility] BUN 19 6 - 19 mg/dL [facility] CREATININE 1.30 0.5 - 1.5 mg/dL [facility] GLUCOSE 117(H) 70 - 99 mg/dL [facility] ALBUMIN 4.1 3.9 - 4.8 g/dL [facility] TOTAL PROTEIN 6.7 6.5 - 8.0 g/dL [facility] CALCIUM 10.5(H) 8.4 - 10.3 mg/dL [facility] ALKALINE PHOSPHATASE 56 39 - 117 U/L [facility] TOTAL BILIRUBIN 0.6 0.0 - 1.2 mg/dL [facility] AST 22 0 - 37 U/L [facility] ALT 12 0 - 40 U/L [facility] GLOBULIN 2.6 1 - 4.8 g/dL [facility] EGFR 40(L) >59 mL/min/1.7 3m2 [facility] Comment:Estimated glomerular filtration rate calculated using the CKD-EPI refit equation. ANION GAP 15 10 - 20 mmol/L [facility] Blood 02/21/2025 2:42 PM EDT 02/21/2025 2:48 PM EDT us Ubaldo Peraza DO LAB BLOOD ORDERABLES Final Resul t [address] [address] from Last 3 Months Insurance MEDICARE REPLACEMENT MEDICARE REPLACEMENT MEDICARE REPLACEMENT MEDICARE REPLACEMENT MEDICARE REPLACEMENT MEDICARE REPLACEMENT MEDICARE REPLACEMENT MEDICARE REPLACEMENT MEDICARE REPLACEMENT [place] [id number] Care Teams [employer] Libr[employer] Relationship Specialty Start Date End Date Keysha Yanez NP [address] [address] [email or web address] PCP - General Family Medicine 12/16/18 Additional Source Comments The information contained in this document represents components of the legal health record. It is not the complete legal health record.[facility]
== END 2025-05-03 13:44 | disposition home or self-care (01) ==
LOC: HO.HNS 12:49
PROVIDERS: Referring Provider Physician Assistant; Visit Provider Physician Assistant
DX: M48.062 Spinal stenosis, lumbar region with neurogenic claudication (principal)
CPT/HCPCS: 99204

== ENCOUNTER → 2025-05-03 12:48 | Outpatient (BNVA) | payer MEDICARE, SELFPAY | PROVIDERS: Referring Provider Physician Assistant; Visit Provider Physician Assistant | DX: M48.062 Spinal stenosis, lumbar region with neurogenic claudication (principal) | CPT/HCPCS: 99202 ==

== ENCOUNTER 2025-07-19 05:47 | Day surgery (SDC) | payer MEDICARE, SELFPAY ==
[2025-07-04 13:13] VITALS: BMI 25.8
--- OUTSIDE RECORDS SUMMARY | 2025-07-04 16:47 | XMS_ITS | Encounter Summary ---
Author Organization [facility] Address [address] [place] [address] Phone Care Team Providers Care Fuller Brush Worker Name Role Phone Anna Yanez SERVICE CREW LEADER Primary Care Provider Encounter Details Date Type Department Care Team (Late st Contact Info) Description 12/07/2020 Ancillary Orders [facility],Outside Imaging [address] [place] [address] System, Provider Not In, [facility] [address] [address] Social History Tobacco Use Types Packs/Day Years [...] Care Team (Late st Contact Info) Description 10/16/2025 2:20 PM EDT Office Visit [facility] [address] [place] [address] Ubaldo Peraza DO [address] [place] [address] documented as of this encounter Results * [...] on filedocumented in this encounter Care Teams Fuller Brush Worker Relationship Specialty Start Date End Date Anna Yanez NP [address] [address] [email or web address] PCP - General Family Medicine 12/16/18 documented as of this encounter Additional Source Comments The information contained in this document represents components of the legal health record. It is not the complete legal health record.[facility]
--- OUTSIDE RECORDS SUMMARY | 2025-07-04 16:47 | XMS_ITS | Encounter Summary ---
Author Organization [facility] Address [address] [place] [phone] Phone Care Team Providers Care Law Firm Partner Name Role Phone Anna Yanez CUTTER FINISHER Primary Care Provider Encounter Details Date Type Department Care Team (Late st Contact Info) Description 12/07/2020 Ancillary Orders [facility],Outside Imaging [address] [place] [address] System, Provider Not In, PhD Partners [address] [address] Social History Tobacco Use Types Packs/Day Years [...] PM EDT Office Visit [facility] 22 [place] [address] Ubaldo Peraza DO 22 [place] [address] documented as of this encounter Results * MRI Breast Outside (No Interpretation) (11/19/2020 12:00 AM EDT) Narrative SYSTEMGENERATED, DOCUMENTATION - 12/07/2020 4:57 PM EDT This study is for PACS storage only and not for interpretation. us Provider Not In System PhD IMG OUTSIDE IMAGING W /OUT INTERPRETATION Final Result documented in this encounter Visit Diagnoses Not on filedocumented in this encounter Care Teams Law Firm Partner Relationship Specialty Start Date End Date Anna Yanez NP 1 [facility] [place] [address] [place] [address] [email or web address] PCP - General Family Medicine 12/16/18 documented as of this encounter Additional Source Comments The information contained in this document represents components of the legal health record. It is not the complete legal health record.[facility]
--- OUTSIDE RECORDS SUMMARY | 2025-07-04 16:47 | XMS_ITS | Encounter Summary ---
Author Organization [facility] Address [address] [place], [place] [id number] Phone Care Team Providers Care Heat Treat Furnace Operator Name Role Phone Anna Yanez WEB ANALYST Primary Care Provider Encounter Details Date Type Department Care Team (Late Contact Info) Description 03/02/2020 Transcribe Orders [address] [address] Anna Yanez NP [address] [place] [address] [email or web address] Social History Tobacco Use Types Packs/Day Years [...] 2:20 PM EDT Office Visit [facility] [address] [place] [address] documented as of this encounter Visit Diagnoses Not on filedocumented in this encounter Care Teams Heat Treat Furnace Operator Relationship Specialty Start Date End Date Anna Yanez NP [address] [address] [email or web address] PCP - General Family Medicine 12/16/18 documented as of this encounter Additional Source Comments The information contained in this document represents components of the legal health record. It is not the complete legal health record.[facility]
--- OUTSIDE RECORDS SUMMARY | 2025-07-04 16:47 | XMS_ITS | Encounter Summary ---
Author Organization [facility] Address [address] [place], [place] [phone] Phone Care Team Providers Care Superintendent Operating Name Role Phone Anna Yanez NP Primary Care Provider Reason for Referral * MRI/CAT Scan - Closed Specialty Diagnoses / Procedures Referred By Lucie cano Referred To Contact Radiology Diagnoses Chest pain, unspecified type Procedures NC Myocardial Perfusion Exercise Multiple Anna Yanez NP 1 [place] [address] Phone: tel: fax: mailto:[email or web address] Referral ID Status Reason Start Date Expiration Date Visits Re quested Visits Authorized [id number] Closed 02/09/2024 02/08/2025 4 4 Encounter Details Date Type Department Care Team (Latest Contact Info) Description 02/09/2024 Transcribe Orders Virtual Department [address] [place] [address] Anna Yanez NP 1 [place] [address] [email or web address] Chest pain, unspecified type (Primary Dx) Social [...] 2:20 PM EDT Office Visit [facility] [address] [place] [address] [place] [address] Ubaldo Peraza DO [address] [place] [phone] [email or web address] documented as of this encounter Results * [...] evidence of scar or ischemia. Anna Yanez NP CV NM CARDIAC Final R esult documented in this encounter Visit Diagnoses Diagnosis Chest pain, unspecified type- Primary Chest pain, unspecified type documented in this encounter Care Teams Superintendent Operating Relationship Specialty Start Date End Date Anna Yanez NP [address] [place] [address] [email or web address] PCP - General Family Medicine 12/16/18 documented as of this encounter Additional Source Comments The information contained in this document represents components of the legal health record. It is not the complete legal health record.[facility]
--- OUTSIDE RECORDS SUMMARY | 2025-07-04 16:47 | XMS_ITS | Encounter Summary ---
Author Organization [facility] Address [address] [place] [address] Phone Care Team Providers Care Showroom Executive Director Name Role Phone Anna Yanez NEON SIGN INSTALLER Primary Care Provider Encounter Details Date Type Department Care Team (Late st Contact Info) Description 12/07/2020 Ancillary Orders [facility],Outside Imaging 30 [place] [address] System, Provider Not In, PhD Partners [address] [address] Social History Tobacco Use Types Packs/Day Years [...] PM EDT Office Visit [facility] 22 [place] [address] Ubaldo Peraza DO 22 [place] [address] documented as of this encounter Results * Mammogram Outside (No Interpretation) (09/25/2020 12:05 AM EST) Narrative SYSTEMGENERATED, DOCUMENTATION - 12/07/2020 12:52 PM EDT This study is for PACS storage only and not for interpretation. us Provider Not In System PhD IMG OUTSIDE IMAGING W /OUT INTERPRETATION Final Result documented in this encounter Visit Diagnoses Not on filedocumented in this encounter Care Teams Showroom Executive Director Relationship Specialty Start Date End Date Anna Yanez NP 1 [facility] 2nd [place] [address] [email or web address] PCP - General Family Medicine 12/16/18 documented as of this encounter Additional Source Comments The information contained in this document represents components of the legal health record. It is not the complete legal health record.[facility]
--- OUTSIDE RECORDS SUMMARY | 2025-07-04 16:47 | XMS_ITS | Encounter Summary ---
Author Organization [facility] Address [address] [place] [address] Phone Care Team Providers Care Production Support Developer Name Role Phone Anna Yanez LOCAL OPERATOR Primary Care Provider Encounter Details Date Type Department Care Team (Late st Contact Info) Description 12/07/2020 Ancillary Orders [facility],Outside Imaging 30 [place] [address] System, Provider Not In, PhD Partners [address] [address] Social History Tobacco Use Types Packs/Day Years [...] PM EDT Office Visit [facility] [address] [place] [address] Ubaldo Peraza DO 22 [place] [address] documented as of this encounter Results * [...] on filedocumented in this encounter Care Teams Production Support Developer Relationship Specialty Start Date End Date Anna Yanez NP [address] [address] PCP - General Family Medicine 12/16/18 documented as of this encounter Additional Source Comments The information contained in this document represents components of the legal health record. It is not the complete legal health record.[facility]
--- OUTSIDE RECORDS SUMMARY | 2025-07-04 16:48 | XMS_ITS | Encounter Summary ---
Author Organization [facility] Address [address] [place] [address] Phone Care Team Providers Care Elevator Repairer Apprentice Name Role Phone Anna Yanez CONSUMER ATTORNEY Primary Care Provider Encounter Details Date Type Department Care Team (Late Contact Info) Description 03/17/2024 Procedure Pass Non-Invasive Cardiology 30 [place] [address] Social History Tobacco Use Types Packs/Day Years [...] Department Care Team (Late Contact Info) Description 10/16/2025 2:20 PM EDT Office Visit [facility] [address] [place] [address] [place] [address] documented as of this encounter Visit Diagnoses Not on filedocumented in this encounter Care Teams Elevator Repairer Apprentice Relationship Specialty Start Date End Date Anna Yanez NP [address] [address] [email or web address] PCP - General Family Medicine 12/16/18 documented as of this encounter Additional Source Comments The information contained in this document represents components of the legal health record. It is not the complete legal health record.[facility]
--- OUTSIDE RECORDS SUMMARY | 2025-07-04 16:48 | XMS_ITS | Encounter Summary ---
Author Organization [facility] Address [address] [place] [address] [place] [address] Phone Care Team Providers Care Manager Administrative Name Role Phone Keysha Yanez BONBON DIPPER Primary Care Provider Encounter Details Date Type Department Care Team (Latest Contact Info) Description 10/28/2024 Transcribe Orders Virtual Department 30 [place] [address] Keysha Yanez NP [address] [facility] [address]nd [place] [address] [email or web address] Age-related osteoporosis without current pathological fracture (Primary [...] PM EDT Office Visit [facility] [address] [place] [address] Ubaldo Peraza DO 22 [place] [address] [email or web address] documented as of this encounter Results * BD DXA AXIAL (SPINE) WITH HIP (03/20/2025 10:24 AM EDT) Anatomical Region Laterality Modality Bone Density Bone Density 03/20/2025 10:2 2 AM EDT Impressions 03/20/2025 7:00 PM EDT Interpretation: Osteopenia. Narrative 03/20/2025 7:00 PM EDT Referred By: KEYSHA YANEZ Indications: Osteoporosis Scanner: [employer] A with serial# of [id number] located at [facility] Bone Density Scan (DXA) 03/20/25 Details of [...] -2.5), or Osteoporosis (T-score <= -2.5). At [facility], T-scores are compared to peak bone density [...] Referred By: KEYSHA YANEZ Indications: Osteoporosis Scanner: [employer] A with serial# of [id number] located at [facility] Bone Density Scan (DXA) 03/20/25 Details of [...] -2.5), or Osteoporosis (T-score <= -2.5). At [facility], T-scores are compared to peak bone density [...] fracture documented in this encounter Care Teams Manager Administrative Relationship Specialty Start Date End Date Keysha Yanez NP 1 [place] [address] [email or web address] PCP - General Family Medicine 12/16/18 documented as of this encounter Additional Source Comments The information contained in this document represents components of the legal health record. It is not the complete legal health record.[facility]
--- OUTSIDE RECORDS SUMMARY | 2025-07-04 16:48 | XMS_ITS | Encounter Summary ---
Author Organization [facility] Address [address] [place] [address] [place] [address] Phone Care Team Providers Care Classer Name Role Phone Anna Yanez CRITICAL CARE UNIT MANAGER Primary Care Provider Reason for Referral * MRI/CAT Scan - Closed Specialty Diagnoses / Procedures Referred By Lucie cano Referred To Contact Radiology Diagnoses Chest pain, unspecified type Procedures NC Stress Result for Nuclear Stress Test Anna Yanez NP [address] [address] Phone: tel: fax: mailto:[email or web address] Referral ID Status Reason Start Date Expiration Date Visits Re quested Visits Authorized [id number] Closed 03/07/2024 03/07/2025 1 1 Encounter Details Date Type Department Care Team (Late st Contact Info) Description 03/07/2024 Ancillary Orders Virtual Department 30 [place] [address] Anna Yanez NP [address] [address] [email or web address] Chest pain, unspecified type (Primary Dx) Social [...] 2:20 PM EDT Office Visit [facility] [address] [place] [address] Ubaldo Peraza DO [address] [place] [address] documented as of this encounter Results * NC Stress Result for Nuclear Stress Test (03/07/2024 2:30 PM EDT) Max Predicted Heart Rate 133 bpm [facility] Max BP Systolic 184 mmHg [facility] Max BP Diastolic 89 mmHg [facility] Max HR 139 BPM [facility] Resting HR 61 BPM [facility] Resting BP Systolic 182 mmHg [facility] Resting BP Diastolic 80 mmHg [facility] [...] by injection of Tc99m Sestamibi by Dianne certified nuclear medicine technologist. 1. EKG - Baseline [...] their maximum predicted heart rate. Anna Yanez NP CV NM CARDIAC Final R esult documented in this encounter Visit Diagnoses Diagnosis Chest pain, unspecified type- Primary Chest pain, unspecified type documented in this encounter Care Teams Classer Relationship Specialty Start Date End Date Anna Yanez NP [address] [address] [email or web address] PCP - General Family Medicine 12/16/18 documented as of this encounter Additional Source Comments The information contained in this document represents components of the legal health record. It is not the complete legal health record.[facility]
--- OUTSIDE RECORDS SUMMARY | 2025-07-04 16:48 | XMS_ITS | Clinical Summary ---
Author Organization [facility] Address [address] [place], [place] [phone] Phone Care Team Providers Care Mussel Opener Name Role Phone Keysha Yanez NP Primary [...] Active Additional Information Patient not taking.Reported on 06/15/2025 vits A,C,E/lutein/mi nerals (OCUVITE WITH LUTEIN ORAL) Take by mouth. 05/18/20 23 Active Active Problems Problem Noted Date Diagnosed Date Hypercalcemia 02/27/2025 Assessment & Plan (06/15/2025 2:24 PM EST): On the last visit she had a calcium of 10.5 but there was no albumin level for me to correct. Calcium is now 9.7 with albumin of 4.2 which will decrease the calcium further. So she is not hypercalcemic. Intact PTH is elevated but it looks like it could be secondary to renal insufficiency and decreased calcium intake. Assessment & Plan (02/27/2025 1:26 PM EDT): [...] 12/19/2020 Hyperparathyroidism, secondary 03/02/2019 Assessment & Plan (06/15/2025 2:34 PM EST): Based on low 24-hour urine calcium output I would say that her hyperparathyroidism is secondary to decreased calcium intake. She also has low GFR and this can contribute to hyperparathyroidism as well. For now I will say she needs to increase her calcium intake and we can repeat intact PTH levels in the future hopefully these will normalize. I did inform the patient that what she should do now is to take the calcium 1200 mg that she is taking twice a day. This is giving her 500 mg elemental calcium so is just amounts to 1000 mg/day. Then we can repeat intact PTH levels. Assessment & Plan (04/28/2022 1:52 PM EDT): [...] of multiple sites 01/26/2019 Assessment & Plan (06/15/2025 2:35 PM EST): She continues in the osteopenic range on calcium and vitamin D supplements. She may not be getting adequate calcium intake based on elevated intact PTH and normal 24-hour urine calcium output. The FRAX score is elevated at 3. 2% at the hip. This means that she would benefit from antiresorptive medications. But she does not want to take any at the moment. She is due for repeat DXA scan on 03/20/2027. Since she is not taking antiresorptive medications she should double her calcium intake because she has secondary hyperparathyroidism. And of course this has vitamin D within it so she is going to be getting adequate vitamin D supplements. Assessment & Plan (02/27/2025 1:28 PM EDT): [...] is due for repeat DXA scan at [facility] on 01/13/2025. Since she reached the [...] should repeat DXA scan on 01/13/2025 at [facility]. Assessment & Plan (03/26/2023 2:22 PM EDT): [...] she should get the study done at [facility] where she had a done last [...] Encounters Date Type Department Care Team Description 06/15/2025 2:20 PM EST Office Visit [facility] [address] [place] [address] Ubaldo Peraza, Osteopenia of multiple sites (Primary Dx); Hypercalcemia; Hyperparathyroidism, secondary from Last 3 Months Family History Medical [...] Sign Reading Time Taken Comments Blood Pressure 108/76 06/15/2025 2:17 PM EST Pulse 72 06/15/2025 2:17 PM EST Temperature 36.2 C (97.1 F) 03/26/2023 1:41 PM EDT Respiratory Rate 16 02/04/2021 2:23 PM EDT Oxygen Saturation 97% 02/25/2024 1:17 PM EDT Inhaled Oxygen Concentration - - Weight 73.9 kg (163 lb) 06/15/2025 2:17 PM EST Height 169 cm (5' 6.54 ) 06/15/2025 2:17 PM EST Body Mass Index 25.89 06/15/2025 2:17 PM EST Plan of Treatment Upcoming Encounters Date Type Department Care Team (Late st Contact Info) Description 10/16/2025 2:20 PM EDT Office Visit [facility] [address] [place] [address] [place] [address] Ubaldo Peraza DO [address] [place] [address] Health Maintenance Due Date Last Done Comments DEPRESSION SCREENING 1947 RSV VACCINE (1 - 1-dose 75+ series) 01/30/2012 INFLUENZA VACCINE (#1) 2025 , 05/13/2020, 05/18/2019, Additional history exists COVID-19 VACCINE ( season) 2025 POTASSIUM LEVEL 03/09/2026 03/09/2025, 02/07, [...] on patient's age to complete this topic IPV VACCINES Aged Out No longer eligi ble [...] EDT Age-related osteoporosis without current pathological fracture RENAL PANEL Routine 03/09/2025 9:59 AM EDT Hypercalcemia from Last 3 Months or Most Recently Relevant to Health Maintenance Results * BD DXA AXIAL (SPINE) WITH HIP (03/20/2025 10:24 AM EDT) Anatomical Region Laterality Modality Bone Density Bone Density 03/20/2025 10:2 2 AM EDT Impressions 03/20/2025 7:00 PM EDT Interpretation: Osteopenia. Narrative 03/20/2025 7:00 PM EDT Referred By: KEYSHA YANEZ Indications: Osteoporosis Scanner: [employer] A with serial# of [id number] located at [facility] Bone Density Scan (DXA) 03/20/25 Details [...] -2.5), or Osteoporosis (T-score <= -2.5). At [facility], T-scores are compared to peak bone [...] Referred By: KEYSHA YANEZ Indications: Osteoporosis Scanner: [employer] with serial# of [id number] located at [facility] Bone Density Scan (DXA) 03/20/25 Details [...] -2.5), or Osteoporosis (T-score <= -2.5). At [facility], T-scores are compared to peak bone [...] results. IMPRESSION: Interpretation: Osteopenia. us Keysha Yanez FUEL OPERATOR IMG BD BONE DENSITY DEX A Final Result * (ABNORMAL) Renal panel (03/09/2025 9:59 AM EDT) SODIUM 138 133 - 146 mmol/L [facility] POTASSIUM 3.4 3.3 - 5.1 mmol/L [facility] CHLORIDE 99 96 - 108 mmol/L [facility] CO2 29 21 - 35 mmol/L [facility] GLUCOSE 102(H) 70 - 99 mg/dL [facility] BUN 13 6 - 19 mg/dL [facility] CREATININE 1.00 0.5 - 1.5 mg/dL [facility] CALCIUM 9.7 8.4 - 10.3 mg/dL [facility] PHOSPHORUS 3.1 2.7 - 4.5 mg/dL [facility] ALBUMIN 4.2 3.9 - 4.8 g/dL [facility] EGFR 54(L) >59 mL/min/1.7 3m2 [facility] Comment:Estimated glomerular filtration rate calculated using the CKD-EPI refit equation. ANION GAP 13 10 - 20 mmol/L [facility] Blood 03/09/2025 9:59 AM EDT 03/09/2025 10:05 AM EDT us Ubaldo Peraza DO LAB BLOOD BKR ORDERABLES Final R esult [facility] [address] [place] [address] from Last 3 Months or Most Recently Relevant to Health Maintenance Insurance MEDICARE REPLACEMENT MEDICARE REPLACEMENT MEDICARE REPLACEMENT MEDICARE REPLACEMENT MEDICARE REPLACEMENT MEDICARE REPLACEMENT MEDICARE REPLACEMENT MEDICARE REPLACEMENT MEDICARE REPLACEMENT Care Teams Mussel Opener Relationship Specialty Start Date End Date Keysha Yanez NP [address] [address] [email or web address] PCP - General Family Medicine 12/16/18 Additional Source Comments The information contained in this document represents components of the legal health record. It is not the complete legal health record.[facility]
--- NOTE | 2025-07-05 09:48 | HO.ANESPROP2 ---
Documented by User: Una Castillo NP 07/05/25 09:58 HPI - Anesthesia Eval Consult details Narrative: 89yo F for Left sided approach L2-3, L3-4 Decompression, 07/19/25 Medically optimized per PCP Follows [facility] for atypical CP, htn, hld. Nml echo 2023. Last office visit 01/2025. Stable without symptoms, nml exam. Routine f/u PMFSH Active Problems Active Problems: All Active Problems Spinal stenosis, lumbar region with neurogenic claudication (Acute) Past Medical History Medical History Fatigue CKD (chronic kidney disease) History of palpitations Schatzki's ring Spinal stenosis History of diverticulosis History of skin cancer Hx of breast cancer Osteopenia Low back pain Depression Anxiety Frequent UTI GERD (gastroesophageal reflux disease) Weakness of both legs HLD (hyperlipidemia) HTN (hypertension) Surgical History Surgical History Hx of cholecystectomy Hx of colonoscopy History of tonsillectomy and adenoidectomy History of lumpectomy of both breasts Hx of spinal surgery Social History Social History Household Members: Spouse Housing: House 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 If so, by whom?: No Are you DNR?: No Advance Directives: No (will look for and bring dos) Advance Directives Information Provided: Yes Advance Directives on File: No Meds Allergies Allergy/AdvReac Type Severity Reaction Status Date / Time No Known Allergies Allergy Verified 07/19/25 06:12 Home Medications ?Medication ?Instructions ?Recorded ?Confirmed ?Last Taken ?Type anastrozole 1 mg tablet 1 mg PO DAILY 07/04/25 07/19/25 Unknown History cyclosporine 0.05 % eye drops in a 1 drp ophthalmic (eye) BID 07/04/25 07/19/25 Unknown History dropperette (Restasis) escitalopram oxalate 10 mg tablet 15 mg PO BEDTIME 07/04/25 07/19/25 Unknown History gabapentin 100 mg capsule 200 mg PO BEDTIME 07/04/25 07/19/25 07/17/25 History hydrochlorothiazide 25 mg tablet 25 mg PO DAILY 07/04/25 07/19/25 Unknown History isosorbide mononitrate 120 mg 120 mg PO DAILY 07/04/25 07/19/25 Unknown History tablet,extended release 24 hr pantoprazole 40 mg tablet,delayed 40 mg PO BID 07/04/25 07/19/25 07/19/25 04:30 History release simvastatin 20 mg tablet 20 mg PO BEDTIME 07/04/25 07/19/25 Unknown History vitamin A-vitamin C-vit E-min 1 tab PO DAILY 07/04/25 07/19/25 Unknown History tablet Exam Height,Weight and Vital Signs: Height 5 ft 6.5 in Weight 73.482 kg Pertinent Lab Results Pertinent Lab Results: CBC and BMP 06/2025 WNL Narrative Narrative: EKG 05/2025 NSR @ 72 ECHO 07/2024 1. Nml LV function 2. Overall LV sys function is nml with EF 60-65% 3. Grade 2 diastolic dysfunction with elevated LA pressure 4. Evidence of aortic sclerosis 5. Aortic valve mildly calcified 6. Mild thickening of anterior mitral valve leaflet 7. There is mild thickening of posterior mitral valve leaflet 8. There is no evidence of pulmo htn 9. No prior echo for comparison Assessment and Plan Assessment Anesthesia Assessment: Chart Reviewed Documented by User: Justyn Beaver MD 07/19/25 08:52 [facility] Past Medical History Medical History Fatigue CKD (chronic kidney disease) History of palpitations Schatzki's ring Spinal stenosis History of diverticulosis History of skin cancer Hx of breast cancer Osteopenia Low back pain Depression Anxiety Frequent UTI GERD (gastroesophageal reflux disease) Weakness of both legs HLD (hyperlipidemia) HTN (hypertension) Family History Family history of problems with anesthesia: No Surgical History Surgical History Hx of cholecystectomy Hx of colonoscopy History of tonsillectomy and adenoidectomy History of lumpectomy of both breasts Hx of spinal surgery History of Problems with Anesthesia: No Social History Social History Household Members: Spouse Housing: House 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 If so, by whom?: No Are you DNR?: No Advance Directives: No (will look for and bring dos) Advance Directives Information Provided: Yes Advance Directives on File: No Meds Allergies Allergy/AdvReac Type Severity Reaction Status Date / Time No Known Allergies Allergy Verified 07/19/25 06:12 Home Medications ?Medication ?Instructions ?Recorded ?Confirmed ?Last Taken ?Type anastrozole 1 mg tablet 1 mg PO DAILY 07/04/25 07/19/25 Unknown History cyclosporine 0.05 % eye drops in a 1 drp ophthalmic (eye) BID 07/04/25 07/19/25 Unknown History dropperette (Restasis) escitalopram oxalate 10 mg tablet 15 mg PO BEDTIME 07/04/25 07/19/25 Unknown History gabapentin 100 mg capsule 200 mg PO BEDTIME 07/04/25 07/19/25 07/17/25 History hydrochlorothiazide 25 mg tablet 25 mg PO DAILY 07/04/25 07/19/25 Unknown History isosorbide mononitrate 120 mg 120 mg PO DAILY 07/04/25 07/19/25 Unknown History tablet,extended release 24 hr pantoprazole 40 mg tablet,delayed 40 mg PO BID 07/04/25 07/19/25 07/19/25 04:30 History release simvastatin 20 mg tablet 20 mg PO BEDTIME 07/04/25 07/19/25 Unknown History vitamin A-vitamin C-vit E-min 1 tab PO DAILY 07/04/25 07/19/25 Unknown History tablet Exam Exam Date and Time: 05/19/25 Airway Mallampati Class: II TM Dist: >3cm Neck ROM: Limited Heart: rrr Lungs: ctab vesicular Assessment and Plan Assessment Anesthesia Assessment: Anesthesia Plan Discussed Final Anesthetic Review Family History of Problems with Anesthesia: No History of Problems with Anesthesia: No NPO: Yes ASA Class: III Final Preanesthetic Review: No Changes in Pt Med Stat, Meds/Allgs Chart Reviewed, Consent Obtained/Reviewed and Anes Risks/Benef Reviewed Patient Risk: Low Procedure Risk: Low Anesthetic Plan Anesthetic Plan: GA Disposition: Standard PACU
--- NOTE | 2025-07-18 16:59 | MHC.SHP ---
Pre-Procedural Eval Section A - 24 Hr Update-Section A only Date of Service: 07/19/25 Section B - Complete if H&P > 30 days Chief Complaint: Spinal stenosis, lumbar region with neurogenic Allergies: Allergies Allergy/AdvReac Type Severity Reaction Status Date / Time No Known Allergies Allergy Verified 05/03/25 13:03 Review of Systems Sugical H&P ROS: Negative: Constitution, Cardiovascular, Respiratory, Neurological, Psychiatric, Hem-Onc, Allergic/Immunologic, Gastrointestinal, Genitourinary, Musculoskeletal, Integumentary, Endocrine and Eyes/Ears/Nose/Throat Exam Surgical H&P Exam: Not Evaluated: HEENT, Not Evaluated: Heart, Not Evaluated: Lungs, Not Evaluated: Extremities, Not Evaluated: Abdomen, Not Evaluated: Skin and Not Evaluated: Neurological Exam Comment: The patient is awake, alert, in no acute distress. Proposed surgical incision site is clean, dry, with no signs of recent trauma. Plan Diagnosis/Plan: Unchanged I have reviewed the history and physical and performed a pertinent physical examination on my patient. No changes have occurred unless specified. Plan remains the same, left L2-3, L3-4 lumbar decompression Time Spent With Patient Time: Total time managing care of this patient today __13__ minutes.
[2025-07-19] VITALS (8 sets, daily range): BP systolic 127–166; BP diastolic 61–66; PULSE 60–73; RESP 10–19; TEMP 36.1–36.8; O2SAT 95–100; BMI 25.4
--- NOTE | ~2025-07-19 | FL_ITS ---
EXAMINATION: XR FLUOROSCOPY WITH IMAGES CLINICAL INFORMATION: Left L2-4 decompression COMPARISON: None available. TECHNIQUE: Fluoroscopy time: 4.3 seconds DAP: 0.7 mGy Images: 1 FINDINGS: Fluoroscopy provided for procedure. Single image, surgical instruments projected posterior to the lumbar spine. Spinal fusion hardware at L4-5. No radiologist present. FL/FL guidance in OR IMPRESSION: Fluoroscopy provided for procedure. See procedure report for details. Electronically signed by: Mikael Briseno MD 07/19/2025 03:54 PM EST
[2025-07-19] MEDS: Lactated Ringers 1,000 ML 100 ML IVCONT (06:23)
--- NOTE | 2025-07-19 08:53 | W.PM.OPN ---
Operative Note Operative Note Date of Service: 07/19/25 Narrative: Preoperative Diagnosis: L2-3, L3-4 spinal stenosis/lateral recess stenosis/neural foraminal stenosis Operation: L2-3, L3-4 Laminotomy, Partial facetectomy and foraminotomy with use of microscope Consent Informed Consent was obtained for this operation. I have explained the nature, purpose and benefits of the operation. I have discussed the risks and benefit of the operation including possible complications or adverse events with patient/family. Alternative(s) were discussed with the patient with their relative benefits and risks as well as the consequences of not accepting the operation were included in obtaining consent. 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 She had a previous fusion done 10 years ago at L4-5. MRI shows severe spinal stenosis at L2-3 with synovial cyst and moderate stenosis at L3-4 due to video facet hypertrophy. The patient was offered a decompression. The procedure complications were explained. The patient was consented. The patient was brought to the operating room and endotracheally intubated. The patient was turned in prone position on the Juan Luis frame. Prep and drape was done followed by timeout. The Physician mortgage loan assistant provided access. A mid lumbar incision was made followed by release of the paravertebral muscle on the left side to expose the L2, L3 and L4 lamina and facet joints. An intraoperative x-ray was obtained to confirm the correct level. The microscope was brought in. I took over the procedure. The high-speed drill was used to do a L2-3 laminotomy until flavum ligament was reached. A #2 Kerrison was used to expand the laminotomy near flush to the pedicles and to include a partial facetectomy. The flavum ligament was opened and resected with a #3 Kerrison to decompress the underlying thecal sac. The flavum ligament was removed to decompress the lateral recess and the exiting L3 nerve root. The spinous process was undercut and in this way I was able to which contralaterally and remove more flavum ligament to decompress the contralateral side. A long nerve hook could be easily passed along the medial side of the pedicles as a sign of adequate decompression. Then attention was turned to the L3-4 level. High-speed drill was used to do an L3-4 hemilaminotomy. No flavum ligament was encountered and the dura was adhesed to the surrounding structures. The dura was carefully dissected. Significant venous oozing occurred which had to be stopped with FloSeal. I did do a partial facetectomy and was able to move a nerve hook along the nerve root. However thought a more extensive decompression would be more harmful to the patient then beneficial due to the scar tissue and amount of venous bleeding. Hemostasis was done again. The microscope was removed. The physician mortgage loan assistant close the Incision in 2 layers. Steri-Strips were used to approximate incision. An OpSite with Tegaderm was used to cover the incision. All sponge needle counts were correct. Patient was extubated and transported in stable is to recovery room. Anesthesia: General Estimated Blood Loss (ml): 70 Complications: None Duration of Surgery: Under 60 Minutes Postoperative Plan: Discharge to home
--- NOTE | 2025-07-19 08:57 | PM.DS ---
DS: Providers Provider Date of Service: 07/19/25 Date of discharge: 07/19/25 Primary care physician: Anna Yanez NP DS: Summary Time Attestation Discharge Coordination Time (in mins): 14 Quality: Safe Use of Opioids Does Pt have an Active Cancer Diagnosis on the Problem List?: No Quality: Stroke Does the patient have a stroke diagnosis?: No Physical Exam Vital Signs: Vital Signs: Last Vital Signs Temp 98.2 F 07/19/25 06:24 Pulse 60 07/19/25 06:24 Resp 16 07/19/25 06:24 BP 166/65 H 07/19/25 06:24 Pulse Ox 99 07/19/25 06:24 O2 Del Method Room Air 07/19/25 06:24 BMI result Body Mass Index 25.4 Discharge Plan Discharge Patient Disposition: Home, Self-Care Referrals: Anna Yanez NP [Primary Care Provider, Internal Medicine] - 1 Week Discharge Medications: New tramadol 50 mg tablet See Rx Instructions .ROUTE .COMPLEX PRN (Reason: pain) Qty: 30 0RF Rx Instructions: Take 1-2 tablets by mouth every 6 hours; Continued anastrozole 1 mg tablet 1 mg PO DAILY isosorbide mononitrate 120 mg tablet extended release 24 hr 120 mg PO DAILY pantoprazole 40 mg tablet,delayed release (DR/EC) 40 mg PO BID simvastatin 20 mg tablet 20 mg PO BEDTIME hydrochlorothiazide 25 mg tablet 25 mg PO DAILY gabapentin 100 mg capsule 200 mg PO BEDTIME escitalopram oxalate 10 mg tablet 15 mg PO BEDTIME cyclosporine [Restasis] 0.05 % dropperette 1 drp ophthalmic (eye) BID vitamin A-vitamin C-vit E-min Tablet 1 tab PO DAILY Discharge Orders: Discharge Order (Routine); Ordered 07/19/25 Ordered By: William Engel Diet: Advance to usual diet Activity on Discharge: As tolerated Activity Restrictions/Additional Instructions: After your spinal surgery we ask you to observe the following restrictions/guidelines: Activity: It is normal to feel some discomfort as you increase your activity, but that will improve with time. We ask you avoid heavy lifting or acitivities that cause pain. As a general rule, 8lbs is a safe limit for lifting right after surgery. Walk as much as you feel comfortable but not to exhaustion. You will feel extra tired the first few days after surgery. Stay well hydrated. It is OK to walk up and down stairs You may return to driving when you are off narcotics (such as vicodin, oxycodone, dilaudid, etc), and you are back to normal functional capacity. If you have any concerns please check with office before driving. Return to work is specific to each patient and each surgery, so please speak with your doctor/PA at first follow up. Please bring paperwork such as FMLA at that time if you need it filled out. Medications: We recommend you take 500mg Tylenol every 4 hours for the first week after surgery, if you do not have any liver issues and can tolerate this medication. Do not exceed 4,000mg daily. We also recommend you take Ibuprofen 600mg every 8 hours for the first week after surgery starting on post op day 1, if you do not have any kidney or sugar control issues and can tolerate this medication. Do not exceed 2,000mg daily. We will give you a short supply of narcotics after surgery (usually one weeks worth). If you need more please call the office but do not use more than prescribed. You will need to give our office 48 hours notice if you need narcotics refilled and we do not fill narcotics on weekends or evenings. If you are on a narcotic, it is a good idea to take a stool softener such as colace or senna to avoid constipation If you take blood thinner such as aspirin, Plavix, Coumadin, Effient, Eliquis etc for conditions such as Afib, DVT, Pulmonary embolus, coronary disease, stents etc please speak with your surgeon about specific details as to when you can resume these medications. You can resume NSAIDs on post op day 1 (eg: Motrin, Naproxen, etc). Follow up: Please call the office, , after surgery to arrange a 3 week follow up for wound check. Wound Care: You may remove your dressing on the first day after surgery. ?You may ?leave open to air. Please do not remove the steri strips underneath. they will fall off on their own in one week. IT IS NORMAL FOR THE WOUND TO OOZE OR BE BLOODY FOR A FEW DAYS AFTER SURGERY. ?IF THIS HAPPENS JUST PLACE NEW DRESSING OVER IT TO AVOID STAINING CLOTHES. You may shower on post op day # 1 We ask that you do not let the water soak the wound. If it does get wet, just towel dry lightly. Please do not scrub your incision or place any type of chemical/ointment on the wound. No tub baths, pools or jacuzzis for one month. If you have any leaking or redness from your wound, or fevers, please call the office. Print Language: Estonian
== END 2025-07-19 10:59 | disposition home or self-care (01) ==
PROVIDERS: PCP Nurse Practitioner Family; Visit Provider Neurological Surgery
PROC: (CPT 63047; principal; 2025-07-19 07:30)
DX: M48.062 Spinal stenosis, lumbar region with neurogenic claudication (principal); M54.50 Low back pain, unspecified; M79.605 Pain in left leg; M79.604 Pain in right leg; R26.2 Difficulty in walking, not elsewhere classified; Z85.3 Personal history of malignant neoplasm of breast; I10 Essential (primary) hypertension; M19.90 Unspecified osteoarthritis, unspecified site; F41.9 Anxiety disorder, unspecified; Z79.899 Other long term (current) drug therapy; Z98.1 Arthrodesis status; Z98.890 Other specified postprocedural states; Z90.49 Acquired absence of other specified parts of digestive tract
CPT/HCPCS: 63047; 63048; J0131; J0461; J1100; J2003; J2371; J2405; J2704; J3010

== ENCOUNTER → 2025-07-19 05:47 | Outpatient (BNV) | payer MEDICARE, SELFPAY | PROVIDERS: PCP Nurse Practitioner Family; Visit Provider Neurological Surgery | DX: M48.062 Spinal stenosis, lumbar region with neurogenic claudication (principal) | CPT/HCPCS: 63047; 63048; 99499 ==